=== PATIENT | female | born 1945 | race Caucasian/White ===

== ENCOUNTER → 2021-05-12 | Outpatient (CLI) | payer MEDICARE ==
--- NOTE | 2021-05-12 10:22 | RAD ---
INDICATION: Screening for osteopenia/osteoporosis. Reason: post menopausal / Spl. Instructions: / H istory: COMPARISON: None TECHNIQUE: Bone densitometry was performed through the lumbar spine and proximal femur. IMPRESSION: Lumbar Spine: BMD: 1.0 T-Score: -1.4 Range: Osteopenic Proximal Femur: BMD: 0.68 T-Score: -2.3 Range: On the border between osteopenia and osteoporosis World Health Organization Criteria for Bone Density: T-Score: > -1.0: Normal Range < -1.0 to -2.5: Osteopenic Range < -2.5: Osteoporotic Range Electronically signed by: Marcello Tinajero MD (05/12/2021 10:19 AM) [id number]
--- NOTE | 2021-05-14 17:58 | RAD ---
Bilateral digital screening 2-D and 3-D (digital breast tomosynthesis) mammogram: Reason for examination: Routine screening. Comparison: Mammogram from 04/17/2013. Interpretation was made with the benefit of CAD. FINDINGS: Breast density: Category B. There are scattered areas of fibroglandular density. There is a 3 mm oval circumscribed mass in the 11:00 position of the right breast, about 1 to 2 cm fr om the nipple. This may be new since previous 2-D mammogram. No other evidence of a suspicious mass i s seen. No malignant appearing calcifications, or architectural distortion is seen. IMPRESSION: 3 mm mass in the 11:00 position of the right breast about 1 to 2 cm from the nipple. Further evaluati on with targeted right breast ultrasound is recommended. Assessment: BI-RADS 0. Incomplete. Additional imaging is recommended. Recommendation: Targeted right breast ultrasound. The patient will be contacted with results and scheduled for additional imaging. The patient will rec eive a letter with the results in the mail. Patient information will be entered into the mammography reminder system with a target recall date for the next mammogram. A reminder letter will be generated . Electronically signed by: Marnie Ibarra MD (05/14/2021 5:56 PM) [id number]
== END ==
LOC: MAMMO 09:27
PROVIDERS: ATTEND Family Medicine
DX: Z12.31 Encounter for screening mammogram for malignant neoplasm of breast (principal); N63.11 Unspecified lump in the right breast, upper outer quadrant; M85.89 Other specified disorders of bone density and structure, multiple sites; M81.0 Age-related osteoporosis without current pathological fracture; Z78.0 Asymptomatic menopausal state
CPT/HCPCS: 77063; 77067; 77080

== ENCOUNTER → 2021-05-28 | Outpatient (CLI) | payer MEDICARE ==
--- NOTE | 2021-05-28 13:57 | RAD ---
EXAM: US BREAST LTD RT 05/28/2021 1:09 PM CLINICAL INDICATION: Recalled from screening mammogram for 3 mm mass at 11:00 2 cm from the nipple i n the right breast. COMPARISON: Screening mammogram 05/12/2021 TECHNIQUE: Focused ultrasound of the upper outer right breast was performed. FINDINGS: At 11:00, 2 cm the nipple, there is an ovoid anechoic cyst measuring 3 mm. This is paralle l in orientation with circumscribed margins and through transmission. No vascularity. There are a few slightly prominent ducts noted in the retroareolar region with no internal mass or debris seen. Ther e is no right axillary lymphadenopathy. IMPRESSION: 1. No evidence of malignancy. There is a 3 mm simple cyst at 11:00 2 cm from the nipple, correspondin g with the mammographic abnormality. 2. BI-RADS 2-benign. 3. Recommend annual screening mammogram in 12 months Electronically signed by: Edna Rolon MD (05/28/2021 1:55 PM) [id number]
== END ==
LOC: US 13:03
PROVIDERS: ATTEND Family Medicine
DX: N60.01 Solitary cyst of right breast (principal); R92.8 Other abnormal and inconclusive findings on diagnostic imaging of breast; N63.10 Unspecified lump in the right breast, unspecified quadrant
CPT/HCPCS: 76642